=== PATIENT | female | born 1985 | race Caucasian/White ===

== ENCOUNTER 2024-06-26 14:15 | Emergency (ER) | payer OTHER, SELFPAY ==
[2024-06-26 14:27] VITALS: BP 146/87
[2024-06-26 14:33] VITALS: BP 112/64
--- NOTE | 2024-06-26 14:56 | ED.GENMED ---
History of Present Illness
General
Chief Complaint: Head Injury
Source: patient
Exam Limitations: none
Time Seen by Provider: 06/26/24 14:45
Nursing documentation reviewed up to this point in time: agreed with
History of Present Illness
History of Present Illness:
39-year-old female with no significant past medical history states 2 nights ago at home she stumbled and fell in her bathroom striking the left side of her forehead. There was no loss of consciousness. She denies N/V. She denies headache, it is
just sore around the area of impact. She awakened next morning with bruising around left orbit and mild bruising right infraorbital area. Denies dizziness, neck pain
Past History
Past History
ED Past Medical History: None
ED Past Surgical History:
Social History
Tobacco: Smoker
Alcohol: None
Personal:
Living: with family
Employment: Employed
Review of Systems
Review of Systems
Allergies reviewed?: Yes
All Other Systems: ROS reviewed and negative except as documented in HPI and ROS
Constitutional: Denies fatigue
EENT: Reports other (Mild bruising around left orbit, right infraorbital area, )
ABD/GI: Denies nausea or vomiting
Musculoskeletal: Denies neck pain
Skin: Reports other (left forehead contusion)
Neurological: Denies dizzy, headache, weakness or numbness
Phy Exam
Physical Exam
Physical Exam:
GENERAL: No acute distress. A&Ox3.
CONSTITUTIONAL: Afebrile.
Head: Mild swelling, ecchymosis left upper forehead
EYES: PERRL, conjunctivae normal, EOMs intact no orbital bony tenderness,
ENMT: moist mucus membranes, Pharynx nl
RESPIRATORY: Regular respirations, nonlabored, lungs clear.
CARDIOVASCULAR: Regular rate and rhythm, no murmurs, no rubs.
GI: Soft, nontender, normal BS
MUSCULOSKELETAL: No cervical tenderness. Moves with ease. Well perfused.
SKIN: Warm, dry, pink
PSYCH: Normal mood and affect. Well kept, interactive and appropriate
NEUROLOGIC: Awake, alert and oriented. No focal neurological deficits. Ambulates well with steady gait
Course
Vital Signs
Initial and Last Documented VS:
Initial Vital Signs
Temp BP Pulse Ox
99.1 F 146/87 100
06/26/24 14:27 06/26/24 14:27 06/26/24 14:27
Last Documented Vital Signs
Temp Pulse Resp BP Pulse Ox
98.0 F 69 16 112/64 98
06/26/24 14:33 06/26/24 14:33 06/26/24 14:33 06/26/24 14:33 06/26/24 14:33
MDM/Problems Addressed
Differential Diagnosis Includes:
contusion, dependent ecchymosis, concussion
MDM/Problems Addressed:
39-year-old female with no significant past medical history states 2 nights ago at home she stumbled and fell in her bathroom striking the left side of her forehead. There was no loss of consciousness. She denies N/V. She denies headache, it is
just sore around the area of impact. She awakened next morning with bruising around left orbit and mild bruising right infraorbital area. Denies dizziness, neck pain
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
Pt neuro exam in normal
No sign of infection
Dependent ecchymosis mainly around left orbit, mildly right infraorbital area from the forehead contusion
*Critical Care Note
Total Time (30-74mins, 75-104mins- exclusive of procedures): Not Applicable
ED Attending Note
-
Portions of this chart may have been created with voice recognition software.� Occasional wrong word or��sound alike� substitutions may have occurred due to the inherent limitations of voice recognition software.
Discharge Plan
Departure
Patient Disposition: Home (Routine Discharge)
Date of Disposition: 06/26/24
Time of Disposition: 14:53
Patient with high blood pressure during this ER visit?: No
Condition: Good
Discharge Problem:
Fall from slip, trip, or stumble, Contusion of forehead
Instructions: Head Injury in Adults (DC), Contusion (DC)
Activity Restrictions/Additional Instructions:
As we discussed, I see nothing worrisome in your workup here today.
The bruising around your eyes is from gravity pooling/draining the blood from the upper left forehead contusion settling around the eyes as you sleep and lay on either side.
Interventions
Interventions:
*Risk Screen - Suicide Last Done: 06/26/24 14:33
*Neglect/Abuse Screening Last Done: 06/26/24 14:33
*Nursing Disposition Last Done: 06/26/24 15:07
ED- Neurological Assessment Last Done: 06/26/24 14:59
ED-Skin Assessment Last Done: 06/26/24 14:59
Discharge Date and Time
Discharge Date/Time: 06/26/24 15:23
Print Language: SAMMARINESE
== END 2024-06-26 15:23 | disposition home or self-care (01) ==
LOC: EMR 14:15
PROVIDERS: EMERGENCY PHYSICIAN Emergency Medicine; FAMILY PHYSICIAN Internal Medicine
DX: S00.83XA Contusion of other part of head, initial encounter (principal); S05.12XA Contusion of eyeball and orbital tissues, left eye, initial encounter; R51.9 Headache, unspecified; W01.0XXA Fall on same level from slipping, tripping and stumbling without subsequent striking against object, initial encounter; F17.200 Nicotine dependence, unspecified, uncomplicated
CPT/HCPCS: 99282